=== PATIENT | female | born 1935 | race Caucasian/White ===

== ENCOUNTER 2017-05-03 11:14 | Day surgery (SDC) | payer MEDICARE, OTHER ==
[~2017-05-03 11:14] MED LIST: BIOTCAP PO; CITRTAB7 PO; CYAN2500 PO; HYDR200T3 PO; MAGN500T4 PO; OCUVCAP; OMEG100037; PRIL20CA PO; RIVA20 PO; SELE200T2 PO; VITACRY3 PO; ZOLP10TA3 PO; tumeric
[2017-05-03] MEDS ORDERED: FURO1TAB62 PO (12:19)
[2017-05-03] MEDS ORDERED: OCUVCAP2 PO (12:19)
[2017-05-03] MEDS ORDERED: BIOT10TA PO (12:19)
[2017-05-03] MEDS ORDERED: OMEP20TA93 PO (12:19)
[2017-05-03] MEDS ORDERED: MULT400T PO (12:19)
[2017-05-03] MEDS ORDERED: OMEGCAP PO (12:19)
[2017-05-03] MEDS ORDERED: METO1TAB42 PO (12:19)
[2017-05-03] MEDS ORDERED: D200CAP PO (12:19)
[2017-05-03] MEDS ORDERED: VITA250C3 PO (12:19)
[2017-05-03] MEDS ORDERED: CITRTAB7 PO (12:19)
[2017-05-03] MEDS ORDERED: SELE200T8 PO (12:19)
[2017-05-03] MEDS ORDERED: CYAN1TAB24 (12:19)
[2017-05-03] MEDS ORDERED: ZOLP10TA3 PO (12:19)
[2017-05-03] MEDS ORDERED: MAGN400T24 PO (12:19)
[2017-05-03] MEDS ORDERED: APIX5TAB PO (12:19)
[2017-05-03] MEDS ORDERED: SODIUM CHLORID 0.9% 500 ML IV PRN (12:30)
[2017-05-03] MEDS ORDERED: LACTATED RINGER'S 1000 ML IV PRN (12:30)
[2017-05-03] MEDS ORDERED: CHLORHEXIDINE GLUCONATE 2 % 1 PACK (2 CLOTHS) TOPICAL PRN (12:30)
[2017-05-03] MEDS ORDERED: METOPROLOL TARTRATE 25 MG TAB PO PRN (12:30)
[2017-05-03] MEDS ORDERED: POVIDONE IODINE 5% (ANTISEPSIS KIT) 4 APPLICATIONS EACH NARE PRN (12:30)
--- NOTE | 2017-05-03 14:03 | MR ---
cc: Mayuri Leonard MD 05/03/2017 Cc: Dr. Fabrizio Garcia, [facility] PROCEDURE: Cardioversion. INDICATION FOR CARDIOVERSION: Atrial fibrillation. CONSENT: Fully informed consent was obtained prior to the procedure. The risks of , bleeding, myocardial infarction, cardiac arrest, pacemaker need, foreseen and unforeseen complications were reviewed. The patient appeared to understand and accept the risks. PROCEDURE: Prior to the procedure the patient was draped and prepped in the usual manner. The patient was anesthetized as per the Anesthesia Department. The patient was given a single 200 joule shock which converted her to sinus rhythm. CONCLUSIONS: Successful cardioversion from atrial fibrillation to sinus rhythm. Mayuri Leonard MD [facility] , 01:35 PM , 02:03 PM
--- NOTE | 2017-05-03 22:54 | EKG ---
Date Performed: 05/03/2017 Time Performed: 11:48:38 PTAGE: 81 years EKG: Atrial fibrillation. Extensive ST-T changes are nonspecific Abnormal ECG PREVIOUS TRACING : 08/31/2015 14.21 No significant changes are noted DOCTOR: Rahat Betancourt Interpretating Date/Time 05/03/2017 22:52:59
--- NOTE | 2017-05-04 13:25 | EKG ---
Date Performed: 05/03/2017 Time Performed: 14:12:08 PTAGE: 81 years EKG: Sinus bradycardia with sinus arrhythmia with borderline 1st degree A-V block. Extensive ST- T changes are nonspecific Low QRS voltages in precordial leads Probable blocked premature atrial cont raction Compared to previous tracing sinus bradycardia and sinus arrhythmia are new but the patient w as previously in atrial fibrillation and is now in normal Sinus rhythm . Otherwise no significant serial change. Borderline ECG PREVIOUS TRACING : 05/03/2017 11.48 DOCTOR: Lesvia Recinos Interpretating Date/Time 05/04/2017 13:25:12
== END 2017-05-03 14:54 | disposition home or self-care (01) ==
LOC: HDOC 11:14 → HDIC 11:15 → HDOC 14:54
PROVIDERS: ATTEND Internal Medicine Cardiovascular Disease
DX: I48.91 Unspecified atrial fibrillation (principal); R94.31 Abnormal electrocardiogram [ECG] [EKG]
CPT/HCPCS: 92960; 93005